=== PATIENT | female | born 1990 | race Caucasian/White ===

== ENCOUNTER 2021-04-18 10:45 | Emergency (ER) | payer OTHER ==
[~2021-04-18] VITALS: Ht 177.8 cm; Wt 100.7 kg
[~2021-04-18 10:45] MED LIST: COLA100C5 PO; IBUP80TA PO; MAPA500T2 PO; PERC5TAB12 PO; PREN27TA3 PO; RANI15TA PO; VALT500T PO
[2021-04-18] MEDS ORDERED: ALLE12TA31 PO (11:26)
[2021-04-18] MEDS ORDERED: TIZA4TAB4 PO (11:26)
[2021-04-18] MEDS ORDERED: DULO1CAP6 PO (11:26)
[2021-04-18] MEDS ORDERED: PANT40TA29 PO (11:26)
[2021-04-18] MEDS ORDERED: LAMO25TA4 PO (11:26)
[2021-04-18] MEDS ORDERED: ARIP1TAB4 PO (11:26)
[2021-04-18] MEDS ORDERED: ONDANSETRON 4 MG ORAL DISINTEGRATING TAB PO ONE (11:45)
[2021-04-18 11:49] LABS: HEMATOCRIT 39.5 % (36.0-47.0); HEMOGLOBIN 12.3 g/dl (12.0-15.5); MEAN CORPUSCULAR HEMOGLOBIN 26.2 pg (27.0-33.0); MEAN CORPUSCULAR HGB CONC 31.1 g/dl (32.0-36.5); PLATELET COUNT, AUTOMATED 332 10^3/uL (150-450); WHITE BLOOD COUNT 7.7 10^3/uL (4.0-10.0)
[2021-04-18 12:16] LABS: HCG, SERUM QUALITATIVE NEGATIVE (NEGATIVE)
[2021-04-18 12:26] LABS: ACETAMINOPHEN LEVEL < 2.0 UG/ML (10.0-30.0); ALBUMIN 4.1 GM/DL (3.2-5.2); ALT/SGPT 23 U/L (12-78); BILIRUBIN,DIRECT < 0.1 MG/DL (0.0-0.2); BILIRUBIN,TOTAL 0.3 MG/DL (0.2-1.0); BLOOD UREA NITROGEN 8 MG/DL (7-18); CALCIUM LEVEL 9.6 MG/DL (8.5-10.1); CARBON DIOXIDE LEVEL 29 MEQ/L (21-32); CHLORIDE LEVEL 105 MEQ/L (98-107); GLOMERULAR FILTRATION RATE > 60.0 (>60); GLUCOSE, FASTING 94 MG/DL (70-100); POTASSIUM SERUM 4.2 MEQ/L (3.5-5.1); SALICYLATE LEVEL < 1.7 MG/DL (5.0-30.0); SODIUM LEVEL 139 MEQ/L (136-145); TOTAL PROTEIN 7.7 GM/DL (6.4-8.2)
[2021-04-18 12:27] LABS: ETHYL ALCOHOL (ETHANOL) < 0.003 % (0.000-0.010)
[2021-04-18 12:28] LABS: AMPHETAMINES LEVEL URINE NEGATIVE (NEGATIVE); BARBITURATES URINE NEGATIVE (NEGATIVE); BENZODIAZEPINES URINE NEGATIVE (NEGATIVE); CANNABINOIDS URINE NEGATIVE (NEGATIVE); COCAINE METABOLITE URINE NEGATIVE (NEGATIVE); METHADONE URINE NEGATIVE (NEGATIVE); OPIATES URINE NEGATIVE (NEGATIVE); PHENCYCLIDINE URINE NEGATIVE (NEGATIVE)
[2021-04-18] MEDS ORDERED: ALLE180T33 PO (18:24)
[2021-04-18] MEDS ORDERED: HOME MED LIST COMPLETE! XX SCH (18:25)
[2021-04-18] MEDS ORDERED: lamoTRIgine 25MG TAB PO ONE (19:20)
[2021-04-18] MEDS ORDERED: PANTOPRAZOLE 40MG TAB (PROTONIX) PO ONE (19:20)
[2021-04-18] MEDS ORDERED: DULoxetine 30 MG CAP (CYMBALTA) PO ONE (19:20)
[2021-04-18] MEDS ORDERED: ARIPiprazole 2 MG TAB PO ONE (19:20)
[2021-04-18] MEDS ORDERED: FEXOFENADINE 60 MG TAB PO ONE (21:00)
--- NOTE | 2021-04-19 06:27 | ECGEPIP ---
- ED Test Date: 2021-04-18 Pat Name: RICCI REED Department: Room: - Gender: Female [employer]: MEJIA : 1990 Requested By: MICHEL Vargas Order Number: [id number] Reading MD: Arnoldo Jarquin Measurements Intervals [place] Rate: 80 P: 52 DE: 130 QRS: 120 QRSD: 84 T: 49 QT: 378 QTc: 435 Interpretive Statements Normal sinus rhythm rightward axis Left posterior fascicular block Nonspecific ST T wave changes No prior ECG for comparison Electronically Signed on 04-19-2021 6:27:41 EDT by Arnoldo Jarquin
[2021-04-19] MEDS ORDERED: tiZANidine 4 MG TAB PO ONE (07:40)
[2021-04-19 07:50] LABS: RSV AMPLIFICATION NEGATIVE (NEGATIVE)
[2021-04-19 12:11] VITALS: BP 146/71
== END 2021-04-19 12:13 ==
LOC: M ED 10:45
DX: R45.851 Suicidal ideations (principal); Z91.5 Personal history of self-harm; F32.9 Major depressive disorder, single episode, unspecified; K21.9 Gastro-esophageal reflux disease without esophagitis; F43.10 Post-traumatic stress disorder, unspecified; Z88.6 Allergy status to analgesic agent; Z79.899 Other long term (current) drug therapy
CPT/HCPCS: 36415; 80048; 80076; 80143; 80307; 82077; 84443; 84703; 85027; 87631; 93005; 99284; Q0162

== ENCOUNTER 2022-12-16 13:45 | Emergency (ER) | payer OTHER ==
[~2022-12-16] VITALS: Ht 175.3 cm; Wt 117.3 kg
[~2022-12-16 13:45] MED LIST changes: +ALLE12TA31 PO; +ALLE180T33 PO; +ARIP1TAB4 PO; +DULO1CAP6 PO; +LAMO25TA4 PO; +PANT40TA29 PO; +TIZA10TA PO
[2022-12-16] MEDS ORDERED: CEPH500C PO (14:34)
[2022-12-16] MEDS ORDERED: ACETAMINOPHEN TAB 650MG DOSE (2X325MG) PO ONE (14:40)
[2022-12-16 14:53] VITALS: BP 145/84
== END 2022-12-16 14:55 | disposition home or self-care (01) ==
LOC: M ED 13:45
DX: J02.0 Streptococcal pharyngitis (principal); Z88.8 Allergy status to other drugs, medicaments and biological substances; Z88.5 Allergy status to narcotic agent; Z79.899 Other long term (current) drug therapy

== ENCOUNTER → 2023-08-02 | Outpatient (CLI) | payer OTHER ==
[~2023-08-02] MED LIST changes: +CEPH500C PO; +PROHANCE 279.3MG/ML 15ML VIAL As Ordered ONE; +PROHANCE 279.3MG/ML 5ML VIAL As Ordered ONE
== END ==
LOC: M RAD 15:53
PROVIDERS: ATTEND Internal Medicine
DX: R51.9 Headache, unspecified (principal)
CPT/HCPCS: 70553; A9576

== ENCOUNTER → 2023-08-13 | Outpatient (REF) | payer OTHER ==
[~2023-08-13] MED LIST changes: -PROHANCE 279.3MG/ML 15ML VIAL As Ordered ONE; -PROHANCE 279.3MG/ML 5ML VIAL As Ordered ONE
== END ==
LOC: M LAB REF 17:52
PROVIDERS: ATTEND Registered Nurse
DX: R30.0 Dysuria (principal)

== ENCOUNTER → 2023-08-31 | Outpatient (REF) | payer OTHER | LOC: M LAB REF 16:01 | PROVIDERS: ATTEND Physician Assistant | DX: N39.0 Urinary tract infection, site not specified (principal) ==

== ENCOUNTER → 2024-04-20 | Outpatient (REF) | payer OTHER | LOC: M LAB REF 12:50 | PROVIDERS: ATTEND Physician Assistant | DX: R30.0 Dysuria (principal) ==

== ENCOUNTER → 2024-06-11 | Outpatient (REF) | payer OTHER | LOC: M LAB REF 16:17 | PROVIDERS: ATTEND Student in an Organized Health Care Education/Training Program | DX: R30.0 Dysuria (principal) ==

== ENCOUNTER → 2024-12-08 | Outpatient (REF) | payer OTHER | LOC: M LAB REF 17:18 | PROVIDERS: ATTEND Physician Assistant | DX: N39.0 Urinary tract infection, site not specified (principal) ==

== ENCOUNTER → 2025-05-08 | Outpatient (REF) | payer OTHER ==
[~2025-05-08] MED LIST changes: +LAMO-18 PO; -LAMO25TA4 PO
== END ==
LOC: M LAB REF 11:43
PROVIDERS: ATTEND Physician Assistant
DX: R30.0 Dysuria (principal)

== ENCOUNTER 2025-06-05 11:02 | Emergency (ER) | payer OTHER ==
[~2025-06-05] VITALS: Ht 177.8 cm; Wt 102.3 kg
[2025-06-05] MEDS: NS (Normal Saline) 0.9% 1,000 ML IV ONE (11:20)
[2025-06-05 11:28] LABS: BASO # 0.0 10^3/uL (0.0-0.2); BASO % 0.2 % (0.0-1.0); EOS # 0.0 10^3/uL (0.0-0.5); EOS % 0.4 % (0.0-3.0); LYMPH # 1.0 10^3/uL (1.5-5.0); LYMPH % 18.3 % (24.0-44.0); MONO # 0.5 10^3/uL (0.0-0.8); MONO % 8.8 % (2.0-8.0); NEUTROPHILS # 4.1 10^3/uL (1.5-8.5); NEUTROPHILS % 71.9 % (36.0-66.0); PLATELET COUNT, AUTOMATED 278 10^3/uL (150-450)
[2025-06-05] MEDS: ACETAMINOPHEN *IV* 1,000 MG in IV 1 EA IV ONE (11:47)
[2025-06-05 11:57] LABS: ALT/SGPT < 9 U/L (7.0-40); AST/SGOT 12 U/L (<34); CALCIUM LEVEL 10.1 MG/DL (8.5-10.1); CARBON DIOXIDE LEVEL 25 MMOL/L (20-31); CHLORIDE LEVEL 107 MMOL/L (98-107); CREATININE FOR GFR 0.84 MG/DL (0.55-1.30); GLOMERULAR FILTRATION RATE > 90.0 (>60); HCG, SERUM QUALITATIVE NEGATIVE (NEGATIVE); POTASSIUM SERUM 4.1 MMOL/L (3.5-5.1); SODIUM LEVEL 144 MMOL/L (136-145)
[2025-06-05] MEDS: DICYCLOMINE INJ 20 MG/2 ML IM ONE (13:55)
[2025-06-05] MEDS: FAMOTIDINE IV BAG 20 MG in IV 1 EA IV ONE (13:55)
[2025-06-05 14:15] VITALS: BP 140/63; TEMP 98; O2SAT 98
== END 2025-06-05 14:27 | disposition home or self-care (01) ==
LOC: M ED 11:02 → EDBD 11:02 → M ED 14:27
DX: K90.0 Celiac disease (principal); K21.9 Gastro-esophageal reflux disease without esophagitis; K58.9 Irritable bowel syndrome, unspecified; F32.A Depression, unspecified; F41.9 Anxiety disorder, unspecified; F43.10 Post-traumatic stress disorder, unspecified; Z90.49 Acquired absence of other specified parts of digestive tract; Z90.89 Acquired absence of other organs; Z88.5 Allergy status to narcotic agent; Z88.8 Allergy status to other drugs, medicaments and biological substances; Z79.899 Other long term (current) drug therapy
CPT/HCPCS: 80048; 80076; 83605; 83690; 84703; 85025; 96365; 96367; 96372; 99284; J0131; J0500; J1308

== ENCOUNTER → 2025-08-05 | Outpatient (REF) | payer OTHER ==
[2025-08-05 15:39] LABS: ALT/SGPT 10 U/L (7.0-40); AST/SGOT 11 U/L (<34); C REACTIVE PROTEIN QUANTITATIV < 0.50 MG/DL (<1.0); CALCIUM LEVEL 9.5 MG/DL (8.5-10.1); CARBON DIOXIDE LEVEL 29 MMOL/L (20-31); CHLORIDE LEVEL 107 MMOL/L (98-107); CREATININE FOR GFR 0.72 MG/DL (0.55-1.30); GLOMERULAR FILTRATION RATE > 90.0 (>60); POTASSIUM SERUM 4.6 MMOL/L (3.5-5.1); SODIUM LEVEL 144 MMOL/L (136-145)
[2025-08-05 15:40] LABS: BASO # 0.0 10^3/uL (0.0-0.2); BASO % 0.2 % (0.0-1.0); EOS # 0.1 10^3/uL (0.0-0.5); EOS % 1.3 % (0.0-3.0); LYMPH # 1.2 10^3/uL (1.5-5.0); LYMPH % 25.8 % (24.0-44.0); MONO # 0.4 10^3/uL (0.0-0.8); MONO % 7.7 % (2.0-8.0); NEUTROPHILS # 3.1 10^3/uL (1.5-8.5); NEUTROPHILS % 65.0 % (36.0-66.0); PLATELET COUNT, AUTOMATED 272 10^3/uL (150-450)
== END ==
LOC: M SFHCRHEU 09:51
PROVIDERS: ATTEND Internal Medicine Rheumatology
DX: I73.00 Raynaud's syndrome without gangrene (principal)